=== PATIENT | female | born 1985 | race Caucasian/White ===

== ENCOUNTER 2017-05-20 11:59 | Outpatient (CLI) | payer OTHER | END 2017-05-20 12:00 | disposition home or self-care (01) | LOC: BICRAD 11:59 | PROVIDERS: ATTEND Specialist | DX: M79.671 Pain in right foot (principal) ==

== ENCOUNTER 2017-05-23 06:41 | Emergency (ER) | payer OTHER | END 2017-05-23 07:42 | disposition home or self-care (01) | LOC: ERS 06:41 | DX: H66.91 Otitis media, unspecified, right ear (principal); K21.9 Gastro-esophageal reflux disease without esophagitis; K58.9 Irritable bowel syndrome, unspecified; F32.9 Major depressive disorder, single episode, unspecified; F41.9 Anxiety disorder, unspecified; G47.00 Insomnia, unspecified | CPT/HCPCS: 99282 ==

== ENCOUNTER 2017-09-06 08:34 | Outpatient (CLI) | payer OTHER | END 2017-09-06 08:35 | disposition home or self-care (01) | LOC: BICULT 08:34 | PROVIDERS: ATTEND Specialist | DX: N83.202 Unspecified ovarian cyst, left side (principal); D25.9 Leiomyoma of uterus, unspecified | CPT/HCPCS: 76856 ==

== ENCOUNTER 2017-10-05 21:17 | Emergency (ER) | payer OTHER ==
[~2017-10-05 21:17] MED LIST: ISOVUE-370 76%-LOCM 1 ML ONE
[2017-10-05 21:36] LABS: Bilirubin Negative (Negative); Blood, Urine Negative (Negative); Clarity CLOUDY (Clear); Glucose, Urine (Dipstick) Negative (Negative); Leukocyte Negative (Negative); Nitrite Negative (Negative); Protein, Urine (Dipstick) Trace mg/dL (Neg-Trace); Specific Gravity, Urine 1.026 (1.002-1.036); Urobilinogen 0.2 mg/dL (0.2-1.0); pH, Urine 6.5 (5.0-9.0)
[2017-10-05 21:37] LABS: Pregnancy Test - Urine (BHCG) Negative (Negative); Pregu Control Background? CLEAR/WHITE (CLR/WHITE); Pregu Control Bar Appear? YES (CONTROL BAR); Specific Gravity 1.026 (1.002-1.036)
[2017-10-05] MEDS ORDERED: Ondansetron ODT 8 MG TAB ONE (21:50)
[2017-10-05 22:02] LABS: #Eosinphils 0.3 thou/uL (0.0-0.7); #Lymphocytes 3.5 thou/uL (1.20-3.40); #Monocytes 0.6 thou/uL (0.11-0.59); #Neutrophils 5.8 thou/uL (1.40-6.50); %Basophils 0.3 % (0.0-1.0); %Eosinophils 2.7 % (0.0-10.0); %Lymphocytes 34.6 % (21.0-51.0); %Monocytes 5.7 % (0.0-10.0); %Neutrophils 56.7 % (42.0-75.0); Hemoglobin 14.1 g/dL (12.0-16.0); Mean Corpuscular HGB CONC 34.7 g/dL (32.0-36.0); Mean Corpuscular Hemoglobin 30.6 pg (27.0-31.0); Mean Corpuscular Volume 88.3 fl (81.0-99.0); Mean Platelet Volume 6.1 fL (7.4-10.4); Platelet Count 334 thou/uL (130-400); RBC Distribution Width 12.6 % (11.5-14.5); White Blood Cell (WBC) Count 10.2 thou/uL (4.8-10.8)
[2017-10-05 22:16] LABS: ALT (SGPT) 12 U/L (8-55); AST (SGOT) 12 U/L (5-34); Albumin 3.8 g/dL (3.5-5.0); Alkaline Phosphatase 103 U/L (40-150); Anion Gap 12 mmol/L (10-20); BUN (Urea Nitrogen) 10 mg/dL (7.0-18.7); Bilirubin, Total Less than 0.2 mg/dL (0.2-1.2); Calc. Creatinine Clearance 0 mL/min (70-130); Calcium 8.9 mg/dL (7.8-10.44); Carbon Dioxide 24 mmol/L (22-29); Chloride 104 mmol/L (98-107); Estimated GFR-MDRD 74; Glucose 103 mg/dL (70-105); Potassium 3.9 mmol/L (3.5-5.1); Protein, Total 7.8 g/dL (6.0-8.3); Sodium 136 mmol/L (136-145)
[2017-10-05] MEDS ORDERED: Mag-Al 1200 mg/1200 mg/30 ML UDCUP ONE (22:22)
[2017-10-05] MEDS ORDERED: Lidocaine Viscous Sol 2% 15 ml UD Cup ONE (22:22)
[2017-10-05] MEDS ORDERED: Lorazepam 2 MG/ML VIAL ONE (22:33)
--- NOTE | 2017-10-05 23:12 | ULT ---
PELVIC ULTRASOUND: 10/05/17 Transabdominal and endovaginal ultrasound of pelvis performed. INDICATIONS: Pelvic pain. The uterus has a normal size and appearance measuring 8.1 x 4.5 x 5.0 cm. Endometrial stripe is gianluca l measured at 5 mm. The right ovary is not identified. The left ovary is identified and appears unremarkable. A left follicular cyst measures up to 1.5 cm. Color doppler and spectral analysis demonstrates blood flow to the left ovary. IMPRESSION: The right ovary is not identified. Pelvic ultrasound is otherwise unremarkable. POS: [facility]
[2017-10-06] MEDS ORDERED: Sucralfate 1 GM/10 ML UDCUP ONE (02:30)
[2017-10-06] MEDS ORDERED: Ketorolac Tromethamine 30 MG/ML VIAL ONE (02:30)
--- NOTE | 2017-10-06 09:17 | CT ---
PRELIMINARY REPORT/[facility]/EMERGENTY AFTER-HOURS PROCEDURE CT Abdomen and Pelvis With Intravenous Contrast CLINICAL HISTORY: 31 years old, female; Pain; Abdominal pain; Generalized; Patient HX: F31 presents to the ed with C/O abdominal and pelvic pain. 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 Pt reports sweating, nauseas, and feeling t he need to vomit. Pt reports can't make sudden movements due to pain. 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 Pt HX of ovarian cysts. Pt reports taking anxiety medication. Pt reports gallbladd er surgery. TECHNIQUE: Axial computed tomography images of the abdomen and pelvis with intravenous contrast. Coronal reforma tted images were created and reviewed. COMPARISON: No relevant prior studies available. FINDINGS: Lung bases: No acute findings. No mass. No consolidation. ABDOMEN: Liver: Enlarged and fatty liver. No mass. No acute findings. Gallbladder and bile ducts: No calcified stones. No ductal dilation. Pancreas: No acute findings. No ductal dilation. No mass. Spleen: No acute findings. No mass. Adrenals: No acute findings. No mass. Kidneys and ureters: No acute findings. No obstructing stones. No hydronephrosis. No solid mass. Stomach and bowel: Fecal loading ascending and transverse colon. Underdistended descending and rectos igmoid colon. Diverticulosis. No evidence of bowel obstruction. PELVIS: Appendix: No findings to suggest acute appendicitis. Bladder: No acute findings. No mass. Reproductive: Left ovarian probable cyst. ABDOMEN and PELVIS: Intraperitoneal space: Trace cul-de-sac fluid/stranding. No free air. Bones/joints: No acute fracture. Soft tissues: No acute findings. Vasculature: No acute findings. No abdominal aortic aneurysm. Lymph nodes: No lymphadenopathy. IMPRESSION: No definite acute process. Findings described above. Left ovarian probable cyst; further evaluation c an be performed with pelvic ultrasound. Thank you for allowing us to participate in the care of your patient. Dictated and Authenticated by: Bubba Lopes MD 10/06/2017 1:45 AM Central Time ([place] & [place]) FINAL REPORT CT ABDOMEN AND PELVIS WITH IV CONTRAST: I agree with the preliminary report given by Dr. Lopes of [facility]. POS: [facility]
== END 2017-10-06 02:40 | disposition home or self-care (01) ==
LOC: ERS 21:17
DX: N83.202 Unspecified ovarian cyst, left side (principal); K21.9 Gastro-esophageal reflux disease without esophagitis; Z86.73 Personal history of transient ischemic attack (TIA), and cerebral infarction without residual deficits; F32.9 Major depressive disorder, single episode, unspecified; F41.0 Panic disorder [episodic paroxysmal anxiety]; G47.00 Insomnia, unspecified; Z79.899 Other long term (current) drug therapy
CPT/HCPCS: 74177; 76856; 80053; 81003; 81025; 85025; 96361; 96374; 96375; J1885; J2060; J2270

== ENCOUNTER 2018-03-24 13:47 | Emergency (ER) | payer OTHER ==
[2018-03-24 14:37] LABS: #Eosinphils 0.2 thou/uL (0.0-0.7); #Monocytes 0.6 thou/uL (0.11-0.59); #Neutrophils 6.1 thou/uL (1.40-6.50); %Basophils 0.3 % (0.0-1.0); %Lymphocytes 22.7 % (21.0-51.0); %Monocytes 6.1 % (0.0-10.0); %Neutrophils 68.9 % (42.0-75.0); Hemoglobin 14.4 g/dL (12.0-16.0); Mean Corpuscular HGB CONC 34.3 g/dL (32.0-36.0); Mean Corpuscular Hemoglobin 30.7 pg (27.0-31.0); Mean Corpuscular Volume 89.6 fL (78.0-98.0); Mean Platelet Volume 6.2 fL (7.4-10.4); Platelet Count 370 thou/uL (130-400); RBC Distribution Width 12.3 % (11.5-14.5); Red Blood Cell (RBC) Count 4.68 mill/uL (4.20-5.40); White Blood Cell (WBC) Count 8.9 thou/uL (4.8-10.8)
[2018-03-24 15:00] LABS: ALT (SGPT) 18 U/L (8-55); AST (SGOT) 18 U/L (5-34); Albumin 4.1 g/dL (3.5-5.0); Alkaline Phosphatase 116 U/L (40-150); Anion Gap 9 mmol/L (10-20); BUN (Urea Nitrogen) 6 mg/dL (7.0-18.7); Bilirubin, Total 0.3 mg/dL (0.2-1.2); Calc. Creatinine Clearance 0 mL/min (70-130); Calcium 8.8 mg/dL (7.8-10.44); Carbon Dioxide 26 mmol/L (22-29); Chloride 106 mmol/L (98-107); Estimated GFR-MDRD 75; Globulin 3.7 g/dL (2.4-3.5); Glucose 98 mg/dL (70-105); Lipase 36 U/L (8-78); Potassium 3.8 mmol/L (3.5-5.1); Protein, Total 7.8 g/dL (6.0-8.3); Sodium 137 mmol/L (136-145)
[2018-03-24] MEDS ORDERED: Mag-Al 1200 mg/1200 mg/30 ML UDCUP ONE (16:15)
[2018-03-24] MEDS ORDERED: Lidocaine Viscous Sol 2% 15 ml UD Cup ONE (16:15)
[2018-03-24] MEDS ORDERED: Sucralfate 1 GM/10 ML UDCUP ONE (16:16)
== END 2018-03-24 16:34 | disposition home or self-care (01) ==
LOC: ERS 13:47
DX: K29.70 Gastritis, unspecified, without bleeding (principal); K21.9 Gastro-esophageal reflux disease without esophagitis; F41.0 Panic disorder [episodic paroxysmal anxiety]; G47.00 Insomnia, unspecified; Z79.899 Other long term (current) drug therapy
CPT/HCPCS: 36415; 80053; 83690; 85025; 99284

== ENCOUNTER 2018-04-07 15:33 | Emergency (ER) | payer OTHER ==
[2018-04-07 16:37] LABS: #Eosinphils 0.2 thou/uL (0.0-0.7); #Lymphocytes 2.3 thou/uL (1.20-3.40); #Monocytes 0.7 thou/uL (0.11-0.59); #Neutrophils 9.4 thou/uL (1.40-6.50); %Basophils 0.1 % (0.0-1.0); %Eosinophils 1.6 % (0.0-10.0); %Lymphocytes 18.3 % (21.0-51.0); %Monocytes 5.2 % (0.0-10.0); %Neutrophils 74.8 % (42.0-75.0); Hemoglobin 15.1 g/dL (12.0-16.0); Mean Corpuscular HGB CONC 34.1 g/dL (32.0-36.0); Mean Corpuscular Hemoglobin 30.6 pg (27.0-31.0); Mean Corpuscular Volume 89.7 fL (78.0-98.0); Mean Platelet Volume 6.5 fL (7.4-10.4); Platelet Count 398 thou/uL (130-400); RBC Distribution Width 12.3 % (11.5-14.5); Red Blood Cell (RBC) Count 4.94 mill/uL (4.20-5.40); White Blood Cell (WBC) Count 12.6 thou/uL (4.8-10.8)
[2018-04-07] MEDS ORDERED: Pantoprazole 40 MG VIAL ONE (16:44)
[2018-04-07] MEDS ORDERED: Metoclopramide HCl 10 MG/2 ML VIAL ONE (16:44)
[2018-04-07 16:53] LABS: BHCG - Serum Negative (NEGATIVE); Pregs Control Background? CLEAR/WHITE (CLR/WHITE); Pregs Control Bar Appear? YES (CONTROL BAR)
[2018-04-07 16:57] LABS: ALT (SGPT) 16 U/L (8-55); AST (SGOT) 17 U/L (5-34); Albumin 4.4 g/dL (3.5-5.0); Alkaline Phosphatase 105 U/L (40-150); Anion Gap 13 mmol/L (10-20); BUN (Urea Nitrogen) 8 mg/dL (7.0-18.7); Bilirubin, Total 0.2 mg/dL (0.2-1.2); Calc. Creatinine Clearance 0 mL/min (70-130); Calcium 9.8 mg/dL (7.8-10.44); Carbon Dioxide 24 mmol/L (22-29); Chloride 105 mmol/L (98-107); Estimated GFR-MDRD 75; Globulin 4.4 g/dL (2.4-3.5); Glucose 111 mg/dL (70-105); Lipase 35 U/L (8-78); Protein, Total 8.8 g/dL (6.0-8.3); Sodium 138 mmol/L (136-145)
[2018-04-07] MEDS ORDERED: Ondansetron PF 4 MG/2 ML Vial ONE (17:44)
[2018-04-07 18:00] LABS: Bilirubin Negative (Negative); Blood, Urine Large (Negative); Clarity CLOUDY (Clear); Glucose, Urine (Dipstick) Negative (Negative); Leukocyte Negative (Negative); Nitrite Negative (Negative); Protein, Urine (Dipstick) 30 mg/dL (Neg-Trace); Specific Gravity, Urine 1.024 (1.002-1.036); Urobilinogen 0.2 mg/dL (0.2-1.0); pH, Urine 5.5 (5.0-9.0)
[2018-04-07 18:02] LABS: Pregnancy Test - Urine (BHCG) Negative (Negative); Pregu Control Background? CLEAR/WHITE (CLR/WHITE); Pregu Control Bar Appear? YES (CONTROL BAR); Specific Gravity 1.024 (1.002-1.036); WBC/HPF 0-3 HPF (0-3)
[2018-04-07 18:05] LABS: Pathc Cast-AUWi Flag 2.76 (0-2.49); Yeast-AUWi Flag 45.9 (0-25.0)
[2018-04-07 18:16] LABS: Bacteria/HPF Rare-Few HPF (None Seen); Hyaline Casts/LPF 0-3 HYALINE CAST LPF (0-3 Hyaline); Other Casts/LPF None Seen LPF (0-3 Hyaline); RBC/HPF 0-3 HPF (0-3); Yeast-All Forms None Seen HPF (None Seen)
== END 2018-04-07 18:35 | disposition home or self-care (01) ==
LOC: ERS 15:33
DX: R11.2 Nausea with vomiting, unspecified (principal); R19.7 Diarrhea, unspecified; K21.9 Gastro-esophageal reflux disease without esophagitis; F41.9 Anxiety disorder, unspecified; G47.00 Insomnia, unspecified; J45.909 Unspecified asthma, uncomplicated; Z79.899 Other long term (current) drug therapy
CPT/HCPCS: 36415; 80053; 81003; 81015; 81025; 83690; 84703; 85025; 96361; 96372; 96374; 96375; C9113; J2405; J2765

== ENCOUNTER 2018-12-11 06:27 | Emergency (ER) | payer OTHER ==
[2018-12-11 06:47] LABS: #Eosinphils 0.3 thou/uL (0.0-0.7); #Lymphocytes 3.5 thou/uL (1.20-3.40); #Monocytes 0.7 thou/uL (0.11-0.59); #Neutrophils 8.5 thou/uL (1.40-6.50); %Basophils 0.3 % (0.0-1.0); %Eosinophils 2.1 % (0.0-10.0); %Lymphocytes 26.8 % (21.0-51.0); %Monocytes 5.4 % (0.0-10.0); %Neutrophils 65.4 % (42.0-75.0); Hemoglobin 15.1 g/dL (12.0-16.0); Mean Corpuscular Hemoglobin 30.6 pg (27.0-31.0); Mean Corpuscular Volume 92.5 fL (78.0-98.0); Mean Platelet Volume 6.4 fL (7.4-10.4); Platelet Count 403 thou/uL (130-400); RBC Distribution Width 12.2 % (11.5-14.5); Red Blood Cell (RBC) Count 4.93 mill/uL (4.20-5.40); White Blood Cell (WBC) Count 13.1 thou/uL (4.8-10.8)
[2018-12-11 07:09] LABS: ALT (SGPT) 13 U/L (8-55); AST (SGOT) 15 U/L (5-34); Albumin 4.5 g/dL (3.5-5.0); Alkaline Phosphatase 80 U/L (40-150); Anion Gap 12 mmol/L (10-20); BUN (Urea Nitrogen) 9 mg/dL (7.0-18.7); Bilirubin, Total 0.2 mg/dL (0.2-1.2); Calc. Creatinine Clearance 0 mL/min (70-130); Calcium 9.4 mg/dL (7.8-10.44); Carbon Dioxide 24 mmol/L (22-29); Chloride 105 mmol/L (98-107); Estimated GFR-MDRD 88; Globulin 3.4 g/dL (2.4-3.5); Glucose 100 mg/dL (70-105); Lipase 45 U/L (8-78); Potassium 4.1 mmol/L (3.5-5.1); Protein, Total 7.9 g/dL (6.0-8.3); Sodium 137 mmol/L (136-145)
[2018-12-11 07:11] LABS: Bilirubin Negative (Negative); Blood, Urine Negative (Negative); Clarity Clear (Clear); Glucose, Urine (Dipstick) Normal (Negative); Leukocyte Negative Leu/uL (Negative); Nitrite Negative (Negative); Protein, Urine (Dipstick) Negative (Neg-Trace); Urobilinogen Normal mg/dL (Less than 2)
[2018-12-11 07:17] LABS: Pregnancy Test - Urine (BHCG) Negative (Negative); Pregu Control Background? CLEAR/WHITE (CLR/WHITE); Pregu Control Bar Appear? YES (CONTROL BAR); Specific Gravity 1.023 (1.002-1.036)
[2018-12-11] MEDS ORDERED: Ondansetron PF 4 MG/2 ML Vial ONE (08:03)
[2018-12-11] MEDS ORDERED: Dicyclomine 20 MG TAB ONE (08:03)
--- NOTE | 2018-12-11 08:32 | CT ---
CT abdomen and pelvis with IV contrast. Oral contrast was not administered. INDICATIONS: Abdominal pain COMPARISON: 10/06/2017 FINDINGS: Lung bases are clear Liver, spleen, and pancreas appear unremarkable. Stomach and duodenum appear unremarkable. Adrenal glands appear normal. Kidneys appear unremarkable. Collecting structures and urinary bladder appear unremarkable. Small bowel loops are normal caliber and exhibit normal fold pattern. Appendix is identified and appears unremarkable. Colon is unremarkable. Aorta is normal caliber. No evidence of retroperitoneal or mesenteric adenopathy. Uterus and adnexa appear unremarkable. Subcutaneous tissues, abdominal wall, and muscular structures appear unremarkable. Osseous structures appear unremarkable. IMPRESSION: No acute findings
[2018-12-11] MEDS ORDERED: ISOVUE-370 76%-LOCM 1 ML ONE (10:22)
== END 2018-12-11 09:41 | disposition home or self-care (01) ==
LOC: ERS 06:27
DX: R10.13 Epigastric pain (principal); R11.2 Nausea with vomiting, unspecified; K21.9 Gastro-esophageal reflux disease without esophagitis; Z86.73 Personal history of transient ischemic attack (TIA), and cerebral infarction without residual deficits; F41.9 Anxiety disorder, unspecified; G47.00 Insomnia, unspecified; Z79.899 Other long term (current) drug therapy
CPT/HCPCS: 74177; 80053; 81003; 81025; 83690; 84484; 85025; 93005; 96361; 96374; J2405; Q9966

== ENCOUNTER 2018-12-27 11:54 | Emergency (ER) | payer OTHER ==
[2018-12-27 13:05] LABS: #Eosinphils 0.2 thou/uL (0.0-0.7); #Lymphocytes 3.1 thou/uL (1.20-3.40); #Monocytes 0.4 thou/uL (0.11-0.59); #Neutrophils 4.7 thou/uL (1.40-6.50); %Basophils 0.5 % (0.0-1.0); %Eosinophils 2.7 % (0.0-10.0); %Lymphocytes 36.5 % (21.0-51.0); %Monocytes 5.1 % (0.0-10.0); %Neutrophils 55.3 % (42.0-75.0); Mean Corpuscular HGB CONC 34.5 g/dL (32.0-36.0); Mean Corpuscular Hemoglobin 31.4 pg (27.0-31.0); Mean Platelet Volume 6.1 fL (7.4-10.4); Platelet Count 414 thou/uL (130-400); RBC Distribution Width 12.2 % (11.5-14.5); Red Blood Cell (RBC) Count 4.46 mill/uL (4.20-5.40); White Blood Cell (WBC) Count 8.5 thou/uL (4.8-10.8)
[2018-12-27 13:30] LABS: ALT (SGPT) 14 U/L (8-55); AST (SGOT) 14 U/L (5-34); Albumin 4.3 g/dL (3.5-5.0); Alkaline Phosphatase 86 U/L (40-150); Anion Gap 11 mmol/L (10-20); BUN (Urea Nitrogen) 9 mg/dL (7.0-18.7); Bilirubin, Total 0.3 mg/dL (0.2-1.2); Calc. Creatinine Clearance 0 mL/min (70-130); Calcium 9.3 mg/dL (7.8-10.44); Carbon Dioxide 25 mmol/L (22-29); Chloride 104 mmol/L (98-107); Estimated GFR-MDRD 76; Globulin 3.5 g/dL (2.4-3.5); Glucose 99 mg/dL (70-105); Lipase 35 U/L (8-78); Potassium 3.9 mmol/L (3.5-5.1); Protein, Total 7.8 g/dL (6.0-8.3); Sodium 136 mmol/L (136-145)
[2018-12-27] MEDS ORDERED: Ketorolac Tromethamine 60 MG/2 ML VIAL ONE (13:55)
[2018-12-27 14:39] LABS: Bilirubin Negative (Negative); Blood, Urine Negative (Negative); Clarity Extra Turbid (Clear); Glucose, Urine (Dipstick) Normal (Negative); Leukocyte Negative Leu/uL (Negative); Nitrite Negative (Negative); Protein, Urine (Dipstick) 30 mg/dL (Neg-Trace); Urobilinogen Normal mg/dL (Less than 2); WBC/HPF 0-3 HPF (0-3)
[2018-12-27 14:46] LABS: Bacteria/HPF 3+ HPF (None Seen)
[2018-12-27 14:49] LABS: BHCG - Serum Negative (NEGATIVE); Pregs Control Background? CLEAR/WHITE (CLR/WHITE); Pregs Control Bar Appear? YES (CONTROL BAR)
--- NOTE | 2018-12-27 15:59 | CT ---
CT OF THE ABDOMEN AND PELVIS WITHOUT IV CONTRAST: 12/27/18 INDICATION: History of abdominal pain. COMPARISON: Prior exam dated 12/11/18. FINDINGS: Lung bases are clear. The unopacified liver, pancreas, adrenal glands and spleen appear within normal limits. No definite r enal or ureteral calculus is evident. Prominent column of Gabriel within the left mid kidney is stable . There is fluid density within the colon. There is a 4.8 cm cyst involving the left adnexa. There i s a 1.9 cm cyst involving the right adnexa. There is a normal appendix in the right lower quadrant of the abdomen. No acute osseous abnormality is evident. IMPRESSION: 1. No renal or ureteral calculus. 2. Bilateral adnexal cysts. 3. Fluid density in the colon is nonspecific but can be seen with diarrheal states. 4. Normal appendix. 5. Stable column of Gabriel within the left kidney. POS: [facility]
[2018-12-27] MEDS ORDERED: HYDROcodone/Acetaminophen 5/325 mg Tablet ONE (16:03)
[2018-12-27] MEDS ORDERED: Ondansetron ODT 4 MG TAB ONE (16:03)
[2018-12-27] MEDS ORDERED: Mag-Al 1200 mg/1200 mg/30 ML UDCUP ONE (17:08)
[2018-12-27] MEDS ORDERED: Lidocaine Viscous Sol 2% 15 ml UD Cup ONE (17:08)
== END 2018-12-27 17:25 | disposition home or self-care (01) ==
LOC: ERS 11:54
DX: R10.9 Unspecified abdominal pain (principal); R80.9 Proteinuria, unspecified; R11.2 Nausea with vomiting, unspecified; K21.9 Gastro-esophageal reflux disease without esophagitis; Z86.73 Personal history of transient ischemic attack (TIA), and cerebral infarction without residual deficits; F32.9 Major depressive disorder, single episode, unspecified; F41.0 Panic disorder [episodic paroxysmal anxiety]; G47.00 Insomnia, unspecified; Z79.899 Other long term (current) drug therapy
CPT/HCPCS: 36415; 74176; 80053; 81003; 81015; 83690; 84703; 85025; 87086; 96372; J1885; Q0162

== ENCOUNTER 2018-12-30 11:08 | Emergency (ER) | payer MEDICAID, OTHER ==
[2018-12-30 11:31] LABS: Bilirubin Small (Negative); Blood, Urine Large (Negative); Clarity Cloudy (Clear); Glucose, Urine (Dipstick) Negative (Negative); Leukocyte Negative (Negative); Nitrite Negative (Negative); Protein, Urine (Dipstick) 100 mg/dL (Neg-Trace); Urobilinogen 0.2 mg/dL (Less than 2)
[2018-12-30 11:32] LABS: Pregnancy Test - Urine (BHCG) Negative (Negative); Pregu Control Background? CLEAR/WHITE (CLR/WHITE); Pregu Control Bar Appear? YES (CONTROL BAR); Specific Gravity 1.025 (1.002-1.036)
[2018-12-30 11:36] LABS: RBC/HPF Greater than 50 HPF (0-3); WBC/HPF 0-3 HPF (0-3)
[2018-12-30 11:37] LABS: Bacteria/HPF 1+ HPF (None Seen); Squamous Epithelial 21-50 HPF (0-3)
[2018-12-30 11:44] LABS: #Basophils 0.1 thou/uL (0.0-0.2); #Eosinphils 0.3 thou/uL (0.0-0.7); #Lymphocytes 2.5 thou/uL (1.20-3.40); #Monocytes 0.4 thou/uL (0.11-0.59); #Neutrophils 4.1 thou/uL (1.40-6.50); %Basophils 0.8 % (0.0-1.0); %Eosinophils 4.4 % (0.0-10.0); %Lymphocytes 34.2 % (21.0-51.0); %Monocytes 5.2 % (0.0-10.0); %Neutrophils 55.5 % (42.0-75.0); Hemoglobin 13.8 g/dL (12.0-16.0); Mean Corpuscular HGB CONC 34.1 g/dL (32.0-36.0); Mean Corpuscular Hemoglobin 30.8 pg (27.0-31.0); Mean Corpuscular Volume 90.5 fL (78.0-98.0); Mean Platelet Volume 6.5 fL (7.4-10.4); Platelet Count 383 thou/uL (130-400); Red Blood Cell (RBC) Count 4.49 mill/uL (4.20-5.40); White Blood Cell (WBC) Count 7.3 thou/uL (4.8-10.8)
[2018-12-30 12:07] LABS: ALT (SGPT) 14 U/L (8-55); AST (SGOT) 15 U/L (5-34); Albumin 4.2 g/dL (3.5-5.0); Alkaline Phosphatase 89 U/L (40-150); Anion Gap 10 mmol/L (10-20); BUN (Urea Nitrogen) 7 mg/dL (7.0-18.7); Bilirubin, Total 0.3 mg/dL (0.2-1.2); Calc. Creatinine Clearance 0 mL/min (70-130); Calcium 9.3 mg/dL (7.8-10.44); Carbon Dioxide 25 mmol/L (22-29); Chloride 105 mmol/L (98-107); Estimated GFR-MDRD 75; Globulin 3.3 g/dL (2.4-3.5); Glucose 89 mg/dL (70-105); Lipase 32 U/L (8-78); Potassium 3.9 mmol/L (3.5-5.1); Protein, Total 7.5 g/dL (6.0-8.3); Sodium 136 mmol/L (136-145)
== END 2018-12-30 16:49 | disposition home or self-care (01) ==
LOC: ERS 11:08
DX: R31.9 Hematuria, unspecified (principal); K21.9 Gastro-esophageal reflux disease without esophagitis; Z86.73 Personal history of transient ischemic attack (TIA), and cerebral infarction without residual deficits; J45.909 Unspecified asthma, uncomplicated; F32.9 Major depressive disorder, single episode, unspecified; F41.0 Panic disorder [episodic paroxysmal anxiety]; G47.00 Insomnia, unspecified; Z79.899 Other long term (current) drug therapy
CPT/HCPCS: 36415; 80053; 81003; 81015; 81025; 83690; 85025; 99284

== ENCOUNTER 2019-05-12 08:15 | Emergency (ER) | payer MEDICAID, OTHER ==
[2019-05-12] MEDS ORDERED: Mag-Al 1200 mg/1200 mg/30 ML UDCUP ONE (09:05)
[2019-05-12] MEDS ORDERED: Lidocaine Viscous Sol 2% 15 ml UD Cup ONE (09:05)
[2019-05-12] MEDS ORDERED: Pantoprazole 40 MG VIAL ONE (09:05)
[2019-05-12] MEDS ORDERED: Ondansetron PF 4 MG/2 ML Vial ONE (09:06)
[2019-05-12 09:12] LABS: #Eosinphils 0.2 thou/uL (0.0-0.7); #Lymphocytes 1.9 thou/uL (1.20-3.40); #Monocytes 0.6 thou/uL (0.11-0.59); #Neutrophils 6.8 thou/uL (1.40-6.50); %Basophils 0.2 % (0.0-1.0); %Eosinophils 1.8 % (0.0-10.0); %Lymphocytes 19.8 % (21.0-51.0); %Neutrophils 72.3 % (42.0-75.0); Hemoglobin 14.8 g/dL (12.0-16.0); Mean Corpuscular Hemoglobin 30.8 pg (27.0-31.0); Mean Corpuscular Volume 90.7 fL (78.0-98.0); Mean Platelet Volume 6.7 fL (7.4-10.4); Platelet Count 327 thou/uL (130-400); RBC Distribution Width 11.9 % (11.5-14.5); White Blood Cell (WBC) Count 9.4 thou/uL (4.8-10.8)
[2019-05-12 09:15] LABS: BHCG - Serum Negative (NEGATIVE); Pregs Control Background? CLEAR/WHITE (CLR/WHITE); Pregs Control Bar Appear? YES (CONTROL BAR)
[2019-05-12 09:22] LABS: ALT (SGPT) 12 U/L (8-55); AST (SGOT) 16 U/L (5-34); Albumin 4.3 g/dL (3.5-5.0); Alkaline Phosphatase 97 U/L (40-110); Anion Gap 12 mmol/L (10-20); BUN (Urea Nitrogen) 12 mg/dL (7.0-18.7); Bilirubin, Total 0.5 mg/dL (0.2-1.2); Calc. Creatinine Clearance 0 mL/min (70-130); Calcium 9.4 mg/dL (7.8-10.44); Carbon Dioxide 27 mmol/L (22-29); Chloride 101 mmol/L (98-107); Estimated GFR-MDRD 67; Globulin 3.6 g/dL (2.4-3.5); Glucose 113 mg/dL (70-105); Lipase 212 U/L (8-78); Potassium 4.1 mmol/L (3.5-5.1); Protein, Total 7.9 g/dL (6.0-8.3); Sodium 136 mmol/L (136-145)
[2019-05-12 09:34] LABS: Bilirubin Negative (Negative); Blood, Urine 1+ (Negative); Glucose, Urine (Dipstick) Normal (Negative); Leukocyte Negative Leu/uL (Negative); Nitrite Negative (Negative); Protein, Urine (Dipstick) 30 mg/dL (Neg-Trace); Urobilinogen Normal mg/dL (Less than 2)
[2019-05-12 09:47] LABS: Bacteria/HPF 1+ HPF (None Seen); Calcium Oxalate Crystals 3+ HPF (None Seen)
[2019-05-12 09:48] LABS: Clarity Hazy (Clear)
[2019-05-12] MEDS ORDERED: Morphine 4 MG/ML VIAL ONE (09:48)
[2019-05-12] MEDS ORDERED: diphenhydrAMINE 50 MG/ML VIAL ONE (10:50)
[2019-05-12] MEDS ORDERED: Haloperidol Lactate 5 MG/ML VIAL ONE (10:50)
== END 2019-05-12 12:30 | disposition home or self-care (01) ==
LOC: ERS 08:15
DX: R10.12 Left upper quadrant pain (principal); R10.32 Left lower quadrant pain; R11.2 Nausea with vomiting, unspecified; R19.7 Diarrhea, unspecified; K21.9 Gastro-esophageal reflux disease without esophagitis; J45.998 Other asthma; I63.9 Cerebral infarction, unspecified; F32.9 Major depressive disorder, single episode, unspecified; F41.0 Panic disorder [episodic paroxysmal anxiety]; Z79.899 Other long term (current) drug therapy
CPT/HCPCS: 36415; 80053; 81003; 81015; 83605; 83690; 84703; 85025; 94760; 96361; 96372; 96374; 96375; C9113; J0500; J1200; J1630; J2270; J2405

== ENCOUNTER 2019-06-05 02:31 | Emergency (ER) | payer OTHER ==
[2019-06-05] MEDS ORDERED: Ondansetron PF 4 MG/2 ML Vial ONE (02:46)
[2019-06-05] MEDS ORDERED: Ketorolac Tromethamine 30 MG/ML VIAL ONE (02:56)
[2019-06-05 03:12] LABS: #Basophils 0.1 thou/uL (0.0-0.2); #Eosinphils 1.3 thou/uL (0.0-0.7); #Lymphocytes 4.6 thou/uL (1.20-3.40); #Monocytes 0.7 thou/uL (0.11-0.59); #Neutrophils 7.1 thou/uL (1.40-6.50); %Basophils 0.4 % (0.0-1.0); %Eosinophils 9.7 % (0.0-10.0); %Lymphocytes 33.4 % (21.0-51.0); %Monocytes 4.8 % (0.0-10.0); %Neutrophils 51.6 % (42.0-75.0); Hemoglobin 15.8 g/dL (12.0-16.0); Mean Corpuscular HGB CONC 33.3 g/dL (32.0-36.0); Mean Corpuscular Hemoglobin 30.2 pg (27.0-31.0); Mean Corpuscular Volume 90.7 fL (78.0-98.0); Mean Platelet Volume 7.1 fL (7.4-10.4); Platelet Count 327 thou/uL (130-400); Red Blood Cell (RBC) Count 5.22 mill/uL (4.20-5.40); White Blood Cell (WBC) Count 13.7 thou/uL (4.8-10.8)
[2019-06-05 03:23] LABS: BHCG - Serum Negative (NEGATIVE); Pregs Control Background? CLEAR/WHITE (CLR/WHITE); Pregs Control Bar Appear? YES (CONTROL BAR)
[2019-06-05 03:33] LABS: ALT (SGPT) 17 U/L (8-55); AST (SGOT) 20 U/L (5-34); Albumin 4.9 g/dL (3.5-5.0); Alkaline Phosphatase 93 U/L (40-110); Anion Gap 18 mmol/L (10-20); BUN (Urea Nitrogen) 12 mg/dL (7.0-18.7); Bilirubin, Total 0.5 mg/dL (0.2-1.2); Calc. Creatinine Clearance 0 mL/min (70-130); Calcium 10.9 mg/dL (7.8-10.44); Carbon Dioxide 22 mmol/L (22-29); Chloride 103 mmol/L (98-107); Estimated GFR-MDRD 47; Globulin 4.2 g/dL (2.4-3.5); Glucose 134 mg/dL (70-105); Lipase 36 U/L (8-78); Potassium 4.1 mmol/L (3.5-5.1); Protein, Total 9.1 g/dL (6.0-8.3); Sodium 139 mmol/L (136-145)
[2019-06-05] MEDS ORDERED: Mag-Al 1200 mg/1200 mg/30 ML UDCUP ONE (03:47)
[2019-06-05] MEDS ORDERED: Lidocaine Viscous Sol 2% 15 ml UD Cup ONE (03:47)
== END 2019-06-05 04:54 | disposition home or self-care (01) ==
LOC: ERS 02:31
DX: E86.0 Dehydration (principal); R11.2 Nausea with vomiting, unspecified; R19.7 Diarrhea, unspecified; R10.84 Generalized abdominal pain; K21.9 Gastro-esophageal reflux disease without esophagitis; F32.9 Major depressive disorder, single episode, unspecified; F41.0 Panic disorder [episodic paroxysmal anxiety]; G47.00 Insomnia, unspecified; Z79.899 Other long term (current) drug therapy
CPT/HCPCS: 80053; 83690; 84703; 85025; 96361; 96374; 96375; J1885; J2405

== ENCOUNTER 2019-07-09 03:14 | Emergency (ER) | payer OTHER ==
[2019-07-09 03:44] LABS: Bilirubin Negative (Negative); Blood, Urine Negative (Negative); Glucose, Urine (Dipstick) Negative (Negative); Leukocyte Trace (Negative); Nitrite Negative (Negative); Protein, Urine (Dipstick) Negative (Neg-Trace); Urobilinogen 0.2 mg/dL (Less than 2)
[2019-07-09 03:52] LABS: #Basophils 0.1 thou/uL (0.0-0.2); #Eosinphils 0.5 thou/uL (0.0-0.7); #Lymphocytes 4.1 thou/uL (1.20-3.40); #Monocytes 0.7 thou/uL (0.11-0.59); #Neutrophils 7.3 thou/uL (1.40-6.50); %Basophils 0.6 % (0.0-1.0); %Eosinophils 4.1 % (0.0-10.0); %Lymphocytes 32.5 % (21.0-51.0); %Monocytes 5.4 % (0.0-10.0); %Neutrophils 57.4 % (42.0-75.0); Hemoglobin 15.5 g/dL (12.0-16.0); Mean Corpuscular HGB CONC 33.7 g/dL (32.0-36.0); Mean Corpuscular Hemoglobin 30.4 pg (27.0-31.0); Mean Corpuscular Volume 90.2 fL (78.0-98.0); Mean Platelet Volume 6.7 fL (7.4-10.4); Platelet Count 415 thou/uL (130-400); Red Blood Cell (RBC) Count 5.11 mill/uL (4.20-5.40); White Blood Cell (WBC) Count 12.7 thou/uL (4.8-10.8)
[2019-07-09 03:53] LABS: Clarity Clear (Clear)
[2019-07-09 03:55] LABS: Pregnancy Test - Urine (BHCG) Negative (Negative); Pregu Control Background? CLEAR/WHITE (CLR/WHITE); Pregu Control Bar Appear? YES (CONTROL BAR); Specific Gravity 1.025 (1.002-1.036)
[2019-07-09 03:57] LABS: Bacteria/HPF None Seen HPF (None Seen)
[2019-07-09 04:11] LABS: ALT (SGPT) 30 U/L (8-55); AST (SGOT) 22 U/L (5-34); Albumin 4.6 g/dL (3.5-5.0); Alkaline Phosphatase 108 U/L (40-110); Anion Gap 14 mmol/L (10-20); BUN (Urea Nitrogen) 13 mg/dL (7.0-18.7); Bilirubin, Total 0.2 mg/dL (0.2-1.2); Calc. Creatinine Clearance 0 mL/min (70-130); Calcium 10.1 mg/dL (7.8-10.44); Carbon Dioxide 26 mmol/L (22-29); Chloride 103 mmol/L (98-107); Estimated GFR-MDRD 58; Globulin 3.7 g/dL (2.4-3.5); Glucose 114 mg/dL (70-105); Lipase 38 U/L (8-78); Potassium 3.8 mmol/L (3.5-5.1); Protein, Total 8.3 g/dL (6.0-8.3); Sodium 139 mmol/L (136-145)
[2019-07-09] MEDS ORDERED: Ondansetron ODT 8 MG TAB ONE (04:58)
[2019-07-09] MEDS ORDERED: Mag-Al 1200 mg/1200 mg/30 ML UDCUP ONE (04:58)
[2019-07-09] MEDS ORDERED: Lidocaine Viscous Sol 2% 15 ml UD Cup ONE (04:58)
--- NOTE | 2019-07-09 07:34 | CT ---
PRELIMINARY REPORT/[facility]/EMERGENCY AFTER HOURS PROCEDURE EXAM: CT Abdomen and Pelvis Without Intravenous Contrast CLINICAL HISTORY: F33 w/ hx of IBS presents to the ED with c/o left sided abdominal pain, described as burning, onset l ast night at 1800. Pt reports nausea and vomiting. Pt reports belching. Pt reports large BM at 0100, diarrhea. Pt reports she has chronic diarrhea. Pt denies urinary sx's. TECHNIQUE: Axial computed tomography images of the abdomen and pelvis without intravenous contrast. CONTRAST: None. COMPARISON: None provided. FINDINGS: LUNG BASES: No basilar airspace consolidation or pleural effusion. LIVER: Enlarged. GALLBLADDER AND BILE DUCTS: Appears absent. PANCREAS: Unremarkable. SPLEEN: Unremarkable. ADRENAL GLANDS: Unremarkable. KIDNEYS, URETERS, AND BLADDER: Unremarkable. No hydronephrosis or nephrolithiasis. No ureteral or michaela dder calculi. STOMACH AND BOWEL: No obstruction. No wall thickening. No CT evidence of colitis or acute diverticuli tis. APPENDIX: No CT evidence for appendicitis. PERITONEUM: No free fluid. No free air. LYMPH NODES: No lymphadenopathy. REPRODUCTIVE: Unremarkable as visualized. VASCULATURE: No aortic aneurysm. ABDOMINAL WALL AND SOFT TISSUES: Unremarkable. BONES: No fracture or suspicious osseous abnormality. IMPRESSION: No acute intra-abdominal or pelvic abnormality. Hepatomegaly. ELECTRONICALLY SIGNED BY: Geovanna Araiza MD Jul 09, 2019 5:53:01 AM CDT This report is intended for review by the ordering physician only, in accordance of law. If you rece erna this report in error, please call [facility] at [phone]. FINAL REPORT CT abdomen and pelvis noncontrast 07/09/2019 performed on emergency basis at 0534 hours HISTORY: Flank pain. COMPARISON: 12/27/2018. FINDINGS: Agree with the preliminary report by Dr. Araiza from [facility]. No acute abnormalities are evident. Liver remains prominent. Follicles arise from the ovaries. Lack of contrast limits evaluation of the soft tissues. Code QA. Transcribed Date/Time: 07/09/2019 7:52 AM
--- NOTE | 2019-07-09 07:41 | RAD ---
Chest one view Abdomen 2 views HISTORY: Abdomen pain. Diarrhea. FINDINGS: Cardiac silhouette and pulmonary vasculature are unremarkable. Mediastinum is midline. Mini mal rightward deviation of the thoracic spine. No confluent airspace consolidation or evidence of free subdiaphragmatic gas. Gas and stool throughout the colon and rectum. No differential air-fluid levels or evidence of free i ntraperitoneal gas. 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 IMPRESSION: No abnormalities are demonstrated.
== END 2019-07-09 06:19 | disposition home or self-care (01) ==
LOC: ERS 03:14
DX: K29.70 Gastritis, unspecified, without bleeding (principal); R11.2 Nausea with vomiting, unspecified; K21.9 Gastro-esophageal reflux disease without esophagitis; Z86.73 Personal history of transient ischemic attack (TIA), and cerebral infarction without residual deficits; F41.9 Anxiety disorder, unspecified; F41.0 Panic disorder [episodic paroxysmal anxiety]; G47.00 Insomnia, unspecified; Z79.899 Other long term (current) drug therapy
CPT/HCPCS: 36415; 74022; 74176; 80053; 81003; 81015; 81025; 83690; 85025

== ENCOUNTER 2019-08-01 06:30 | Emergency (ER) | payer OTHER ==
[2019-08-01] MEDS ORDERED: Mag-Al 1200 mg/1200 mg/30 ML UDCUP ONE ×2 (06:35→06:36)
[2019-08-01] MEDS ORDERED: Lidocaine Viscous Sol 2% 15 ml UD Cup ONE (06:36)
== END 2019-08-01 06:49 | disposition home or self-care (01) ==
LOC: ERS 06:30
DX: K21.9 Gastro-esophageal reflux disease without esophagitis (principal); F41.0 Panic disorder [episodic paroxysmal anxiety]; F41.9 Anxiety disorder, unspecified; J45.998 Other asthma; G47.00 Insomnia, unspecified; Z79.899 Other long term (current) drug therapy
CPT/HCPCS: 99283

== ENCOUNTER 2019-10-28 18:48 | Emergency (ER) | payer OTHER ==
[2019-10-29 12:09] LABS: SARS-CoV-2 MS2 Positive; SARS-CoV-2 N Gene Negative; SARS-CoV-2 S Gene Negative; SARS-CoV-2 orf1ab Negative
== END 2019-10-28 19:35 | disposition home or self-care (01) ==
LOC: ERS 18:48
DX: Z20.828 Contact with and (suspected) exposure to other viral communicable diseases (principal); J45.909 Unspecified asthma, uncomplicated; F41.9 Anxiety disorder, unspecified; F41.0 Panic disorder [episodic paroxysmal anxiety]; Z79.899 Other long term (current) drug therapy
CPT/HCPCS: 87635; U0003

== ENCOUNTER 2019-11-21 10:57 | Emergency (ER) | payer OTHER ==
[2019-11-21] MEDS ORDERED: Metoclopramide HCl 10 MG/2 ML VIAL ONE (12:14)
[2019-11-21] MEDS ORDERED: diphenhydrAMINE 50 MG/ML VIAL ONE (12:14)
--- NOTE | 2019-11-21 12:21 | CT ---
EXAM: CT brain without contrast HISTORY: Excruciating headache COMPARISON: 09/27/2009 TECHNIQUE: Multiple contiguous axial images were obtained and a CT of the brain without contrast. FINDINGS: The brain is normal in morphology and attenuation without focal lesions or confluent areas of infarction. There is no evidence of hydrocephalus, intracranial hemorrhage, or extra-axial fluid collection. The calvarium and overlying soft tissues are unremarkable. The visualized paranasal sinuses and masto id air cells are well aerated. IMPRESSION: No evidence of acute intracranial abnormality
[2019-11-21 12:36] LABS: #Basophils 0.1 thou/uL (0.0-0.2); #Eosinphils 0.5 thou/uL (0.0-0.7); #Lymphocytes 2.9 thou/uL (1.20-3.40); #Monocytes 0.4 thou/uL (0.11-0.59); #Neutrophils 6.1 thou/uL (1.40-6.50); %Basophils 0.5 % (0.0-1.0); %Eosinophils 4.9 % (0.0-10.0); %Monocytes 4.2 % (0.0-10.0); %Neutrophils 61.4 % (42.0-75.0); Hemoglobin 15.6 g/dL (12.0-16.0); Mean Corpuscular HGB CONC 34.7 g/dL (32.0-36.0); Mean Corpuscular Hemoglobin 31.7 pg (27.0-31.0); Mean Corpuscular Volume 91.4 fL (78.0-98.0); Mean Platelet Volume 7.2 fL (7.4-10.4); Platelet Count 350 thou/uL (130-400); RBC Distribution Width 11.9 % (11.5-14.5); Red Blood Cell (RBC) Count 4.94 mill/uL (4.20-5.40); White Blood Cell (WBC) Count 9.9 thou/uL (4.8-10.8)
[2019-11-21] MEDS ORDERED: Ondansetron PF 4 MG/2 ML Vial ONE (12:54)
[2019-11-21 12:56] LABS: ALT (SGPT) 13 U/L (8-55); AST (SGOT) 19 U/L (5-34); Albumin 4.8 g/dL (3.5-5.0); Alkaline Phosphatase 82 U/L (40-110); Anion Gap 15 mmol/L (10-20); BUN (Urea Nitrogen) 11 mg/dL (7.0-18.7); Bilirubin, Total 0.5 mg/dL (0.2-1.2); Calc. Creatinine Clearance 0 mL/min (70-130); Calcium 9.9 mg/dL (7.8-10.44); Carbon Dioxide 22 mmol/L (22-29); Chloride 105 mmol/L (98-107); Estimated GFR-MDRD 69; Globulin 3.8 g/dL (2.4-3.5); Glucose 129 mg/dL (70-105); Potassium 3.7 mmol/L (3.5-5.1); Protein, Total 8.6 g/dL (6.0-8.3); Sodium 138 mmol/L (136-145)
[2019-11-21] MEDS ORDERED: methylPREDNISolone Sod Succ/PF 125 MG/2 ML VIAL ONE (13:37)
[2019-11-21] MEDS ORDERED: Magnesium 2 GM/50 ML BAG (IN WATER) ONE (13:37)
[2019-11-21] MEDS ORDERED: Ketorolac Tromethamine 30 MG/ML VIAL ONE (13:37)
== END 2019-11-21 14:48 | disposition home or self-care (01) ==
LOC: ERS 10:57
DX: R51 Headache (principal); F41.0 Panic disorder [episodic paroxysmal anxiety]; F41.9 Anxiety disorder, unspecified; F32.9 Major depressive disorder, single episode, unspecified; G47.00 Insomnia, unspecified; K58.9 Irritable bowel syndrome, unspecified; J45.909 Unspecified asthma, uncomplicated; Z86.73 Personal history of transient ischemic attack (TIA), and cerebral infarction without residual deficits; Z79.899 Other long term (current) drug therapy
CPT/HCPCS: 70450; 80053; 85025; 96365; 96367; 96375; J1200; J1885; J2405; J2765; J2930; J3475

== ENCOUNTER 2019-11-30 13:03 | Emergency (ER) | payer OTHER ==
[2019-11-30 13:44] LABS: Bilirubin Negative (Negative); Blood, Urine Trace (Negative); Glucose, Urine (Dipstick) Negative (Negative); Ketone, Urine Negative (Negative); Leukocyte Negative (Negative); Nitrite Negative (Negative); Protein, Urine (Dipstick) Negative (Neg-Trace); Urobilinogen 0.2 mg/dL (Less than 2)
[2019-11-30 13:52] LABS: Clarity Clear (Clear); RBC/HPF 0-3 HPF (0-3)
[2019-11-30 13:53] LABS: Bacteria/HPF Rare-Few HPF (None Seen); Squamous Epithelial 0-3 HPF (0-3); WBC/HPF None Seen HPF (0-3)
[2019-11-30] MEDS ORDERED: Lidocaine Viscous Sol 2% 15 ml UD Cup ONE (14:02)
[2019-11-30] MEDS ORDERED: Mag-Al 1200 mg/1200 mg/30 ML UDCUP ONE (14:02)
[2019-11-30 14:22] LABS: #Eosinphils 0.6 thou/uL (0.0-0.7); #Lymphocytes 2.6 thou/uL (1.20-3.40); #Monocytes 0.6 thou/uL (0.11-0.59); #Neutrophils 5.7 thou/uL (1.40-6.50); %Basophils 0.3 % (0.0-1.0); %Eosinophils 6.7 % (0.0-10.0); %Lymphocytes 27.5 % (21.0-51.0); %Monocytes 5.8 % (0.0-10.0); %Neutrophils 59.6 % (42.0-75.0); Hemoglobin 13.8 g/dL (12.0-16.0); Mean Corpuscular HGB CONC 33.5 g/dL (32.0-36.0); Mean Corpuscular Hemoglobin 31.1 pg (27.0-31.0); Mean Corpuscular Volume 92.9 fL (78.0-98.0); Mean Platelet Volume 6.9 fL (7.4-10.4); Platelet Count 345 thou/uL (130-400); Red Blood Cell (RBC) Count 4.45 mill/uL (4.20-5.40); White Blood Cell (WBC) Count 9.5 thou/uL (4.8-10.8)
[2019-11-30 14:43] LABS: ALT (SGPT) 12 U/L (8-55); AST (SGOT) 15 U/L (5-34); Albumin 4.1 g/dL (3.5-5.0); Alkaline Phosphatase 79 U/L (40-110); Anion Gap 12 mmol/L (10-20); BUN (Urea Nitrogen) 7 mg/dL (7.0-18.7); Bilirubin, Total 0.3 mg/dL (0.2-1.2); Calc. Creatinine Clearance 0 mL/min (70-130); Carbon Dioxide 24 mmol/L (22-29); Chloride 104 mmol/L (98-107); Estimated GFR-MDRD 78; Globulin 3.5 g/dL (2.4-3.5); Glucose 101 mg/dL (70-105); Lipase 32 U/L (8-78); Potassium 3.8 mmol/L (3.5-5.1); Protein, Total 7.6 g/dL (6.0-8.3); Sodium 136 mmol/L (136-145)
[2019-11-30 14:53] LABS: Pregnancy Test - Urine (BHCG) Negative (Negative); Pregu Control Background? CLEAR/WHITE (CLR/WHITE); Pregu Control Bar Appear? YES (CONTROL BAR)
== END 2019-11-30 15:16 | disposition home or self-care (01) ==
LOC: ERS 13:03
DX: R10.13 Epigastric pain (principal); K21.9 Gastro-esophageal reflux disease without esophagitis; F41.9 Anxiety disorder, unspecified; Z79.899 Other long term (current) drug therapy
CPT/HCPCS: 36415; 80053; 81003; 81025; 83690; 85025; 99284

== ENCOUNTER 2020-07-30 12:33 | Emergency (ER) | payer OTHER ==
[2020-07-30] MEDS ORDERED: Ketorolac Tromethamine 30 MG/ML VIAL ONE (16:55)
[2020-07-30] MEDS ORDERED: Metoclopramide HCl 10 MG TAB ONE (16:56)
== END 2020-07-30 18:45 | disposition home or self-care (01) ==
LOC: ERS 12:33
DX: R51.9 Headache, unspecified (principal); J45.909 Unspecified asthma, uncomplicated; K58.9 Irritable bowel syndrome, unspecified; Z86.73 Personal history of transient ischemic attack (TIA), and cerebral infarction without residual deficits; Z79.899 Other long term (current) drug therapy
CPT/HCPCS: 70450; 96372; J1885

== ENCOUNTER 2020-09-07 09:37 | Emergency (ER) | payer OTHER ==
[2020-09-07] MEDS ORDERED: predniSONE 20 MG TAB ONE (09:58)
== END 2020-09-07 11:55 | disposition short-term general hospital (02) ==
LOC: ERS 09:37
DX: J45.901 Unspecified asthma with (acute) exacerbation (principal); K21.9 Gastro-esophageal reflux disease without esophagitis; Z79.899 Other long term (current) drug therapy
CPT/HCPCS: 71045; 93005; 94644; J7512; J7620

== ENCOUNTER 2020-10-09 10:11 | Outpatient (CLI) | payer OTHER | END 2020-10-09 10:12 | disposition home or self-care (01) | LOC: BICULT 10:11 | PROVIDERS: ATTEND Internal Medicine Gastroenterology | DX: K21.9 Gastro-esophageal reflux disease without esophagitis (principal); R14.0 Abdominal distension (gaseous); K58.2 Mixed irritable bowel syndrome | CPT/HCPCS: 93975 ==

== ENCOUNTER 2021-04-12 07:15 | Emergency (ER) | payer OTHER ==
[2021-04-12] MEDS ORDERED: methylPREDNISolone Sod Succ/PF 125 MG/2 ML VIAL ONE ×2 (08:01→08:04)
== END 2021-04-12 09:58 | disposition home or self-care (01) ==
LOC: ERS 07:15
DX: J45.901 Unspecified asthma with (acute) exacerbation (principal); K21.9 Gastro-esophageal reflux disease without esophagitis; Z79.899 Other long term (current) drug therapy
CPT/HCPCS: 96374; J2930; J7620

== ENCOUNTER 2022-04-11 17:32 | Emergency (ER) | payer OTHER ==
[2022-04-11] MEDS ORDERED: Dexamethasone 4 MG TAB ONE (17:57)
== END 2022-04-11 20:05 | disposition home or self-care (01) ==
LOC: ERS 17:32
DX: J45.901 Unspecified asthma with (acute) exacerbation (principal); K21.9 Gastro-esophageal reflux disease without esophagitis
CPT/HCPCS: 71045; 94760; J7620; J8540

== ENCOUNTER 2022-12-02 02:29 | Emergency (ER) | payer OTHER ==
[2022-12-02] MEDS ORDERED: Mag-Al 1200 mg/1200 mg/30 ML UDCUP ONE (03:16)
[2022-12-02 03:20] LABS: Bacteria/HPF None Seen HPF (None Seen); Bilirubin Negative (Negative); Blood, Urine Negative (Negative); CAUTI Indications for Culture < 2yrs of age; Clarity Clear (Clear); Glucose, Urine (Dipstick) Normal (Negative); Ketone, Urine Negative (Negative); Leukocyte Negative Leu/uL (Negative); Mucous/LPF Rare LPF (<2+); Nitrite Negative (Negative); Protein, Urine (Dipstick) Negative (Neg-Trace); RBC/HPF 0-3 HPF (0-3); Specific Gravity, Urine 1.027 (1.002-1.036); Squamous Epithelial 0-3 HPF (0-3); Urobilinogen Normal mg/dL (Less than 2); WBC/HPF 0-3 HPF (0-3)
[2022-12-02 03:24] LABS: Urine Culture Reflex Yes Yes
[2022-12-02 03:31] LABS: #Basophils 0.1 thou/uL (0.0-0.2); #Eosinphils 1.1 thou/uL (0.0-0.7); #Monocytes 0.6 thou/uL (0.11-0.59); #Neutrophils 6.3 thou/uL (1.40-6.50); %Basophils 0.5 % (0.0-1.0); %Eosinophils 9.7 % (0.0-10.0); %Lymphocytes 27.2 % (21.0-51.0); %Neutrophils 57.2 % (42.0-75.0); Hematocrit 43.8 % (36.0-47.0); Hemoglobin 14.9 g/dL (12.0-16.0); Mean Corpuscular Volume 91.1 fl (78.0-98.0); Mean Platelet Volume 9.1 fL (7.4-10.4); Platelet Count 311 10x3/uL (130-400); RBC Distribution Width 12.6 % (11.5-14.5); Red Blood Cell (RBC) Count 4.81 mill/uL (4.20-5.40)
[2022-12-02 03:55] LABS: ALT (SGPT) 19 U/L (8-55); AST (SGOT) 21 U/L (5-34); Albumin 4.2 g/dL (3.5-5.0); Alkaline Phosphatase 85 U/L (40-110); Anion Gap 12 mmol/L (10-20); BUN (Urea Nitrogen) 12 mg/dL (7.0-18.7); Bilirubin, Total 0.5 mg/dL (0.2-1.2); Calc. Creatinine Clearance 0 mL/min (70-130); Calcium 9.3 mg/dL (7.8-10.44); Carbon Dioxide 21 mmol/L (22-29); Chloride 109 mmol/L (98-107); Estimated GFR 70; Globulin 3.6 g/dL (2.4-3.5); Glucose 108 mg/dL (70-105); Lipase 34 U/L (8-78); Potassium 3.8 mmol/L (3.5-5.1); Protein, Total 7.8 g/dL (6.0-8.3); Sodium 138 mmol/L (136-145)
== END 2022-12-02 04:31 | disposition home or self-care (01) ==
LOC: ERS 02:29
DX: K29.00 Acute gastritis without bleeding (principal); K21.9 Gastro-esophageal reflux disease without esophagitis
CPT/HCPCS: 36415; 76705; 80053; 81001; 83690; 85025; 87086

== ENCOUNTER 2022-12-08 10:51 | Outpatient (CLI) | payer OTHER | END 2022-12-08 10:52 | disposition home or self-care (01) | LOC: MRI 10:51 | PROVIDERS: ATTEND Psychiatry & Neurology Neurology | DX: G43.909 Migraine, unspecified, not intractable, without status migrainosus (principal) | CPT/HCPCS: 70551 ==

== ENCOUNTER 2024-12-10 11:08 | Emergency (ER) | payer OTHER ==
[2024-12-10] MEDS ORDERED: Dexamethasone 10 MG/ML VIAL ONE (12:22)
[2024-12-10] MEDS ORDERED: Acetaminophen 500 MG TAB ONE (12:22)
[2024-12-10] MEDS ORDERED: Ketorolac Tromethamine 30 MG (1 mL) VIAL ONE (12:22)
== END 2024-12-10 16:32 | disposition home or self-care (01) ==
LOC: ERS 11:08
DX: J45.901 Unspecified asthma with (acute) exacerbation (principal); J18.9 Pneumonia, unspecified organism; Z55.6 Problems related to health literacy
CPT/HCPCS: 71046; 96372; J1100; J1885; J7620